=== PATIENT | female | born 1985 ===

== ENCOUNTER 2019-03-31 19:32 | Outpatient (CLI) | payer OTHER | END 2019-03-31 20:15 | disposition home or self-care (01) | LOC: RAD 19:32 | DX: R05 Cough (principal); R50.9 Fever, unspecified ==

== ENCOUNTER 2019-03-31 19:39 | Outpatient (CLI) | payer OTHER | END 2019-03-31 20:00 | disposition home or self-care (01) | LOC: LAB 19:39 | DX: R11.2 Nausea with vomiting, unspecified (principal); R50.9 Fever, unspecified ==